=== PATIENT | male | born 1935 | race Caucasian/White ===

== ENCOUNTER → 2020-08-29 | Outpatient (CLI) | payer OTHER ==
[~2020-08-29] MED LIST: ALBUTEROL2.5 MG/3 M INH; CEFUROXIME500 MG PO; CLOPIDOGREL75 MG PO; DIGOXIN125 MCG PO; DOXYCYCLINE HY100 MG PO; ECOTRIN81 MG PO; ELIQUIS 2.5 MG2.5 MG PO; FLONASE 0.05% N16 GM; FUROSEMIDE40 MG PO; GLYNASE 3 MG TAB3 MG PO; K-DUR TAB 20 M20 MEQ PO; LASIX 40 MG TAB40 MG PO; LEVAQUIN750 MG PO; LOPRESSOR 25 MG25 MG PO; LOPRESSOR 50 MG50 MG PO; LOSARTAN-HCTZ1 EAC1 PO; MEDROL DOSEPAK 24 MG PO; METFORMIN HCL500 M2 PO; MOBIC7.5 MG PO; NEURONTIN 300300 MG PO; PREDNISONE 10 M10 MG PO; PREDNISONE10 MG PO; PREDNISONE20 MG PO; PROSCAR5 MG PO; PROVENTIL HFA 61 INH INH; SYNTHROID75 MCG PO; TYLENOL 325MG325 MG PO; XARELTO20 MG PO
== END ==
LOC: RT 09:49
DX: Z01.810 Encounter for preprocedural cardiovascular examination (principal); I49.3 Ventricular premature depolarization; R00.1 Bradycardia, unspecified; R94.31 Abnormal electrocardiogram [ECG] [EKG]
CPT/HCPCS: 93005

== ENCOUNTER → 2021-02-21 | Outpatient (CLI) | payer OTHER | LOC: KOH-I 14:35 | DX: J44.9 Chronic obstructive pulmonary disease, unspecified (principal); R06.02 Shortness of breath | CPT/HCPCS: 71046 ==

== ENCOUNTER 2021-04-03 11:28 | Inpatient (IN) | payer OTHER ==
[~2021-04-03] VITALS: Ht 177.8 cm; Wt 72.1 kg
[~2021-04-03 11:28] MED LIST changes: -ALBUTEROL2.5 MG/3 M INH; -LASIX 40 MG TAB40 MG PO
[2021-04-03 12:17] LABS: HEMOGLOBIN 13.2 gm/dl (14.0-17.5); RED BLOOD COUNT 4.25 M/UL (4.20-5.50); WHITE BLOOD COUNT 9.9 K/UL (4.5-11.0)
[2021-04-03 12:43] LABS: BUN/CREATININE RATIO 15 (0-10)
[2021-04-03] MEDS ORDERED: ALBUTEROL2.5 MG/3 M INH (13:28)
[2021-04-03] MEDS ORDERED: LOPRESSOR50 MG PO (14:37)
[2021-04-03] MEDS ORDERED: PLAVIX 75 MG TA75 MG PO (15:09)
[2021-04-03] MEDS ORDERED: DIGOXIN125 MCG PO (15:10)
[2021-04-03] MEDS ORDERED: LASIX 40 MG TAB40 MG PO (18:48)
[2021-04-03] MEDS ORDERED: K-DUR TAB 20 M20 MEQ PO (18:49)
[2021-04-04 02:27] LABS: HEMOGLOBIN 12.4 gm/dl (14.0-17.5); RED BLOOD COUNT 3.99 M/UL (4.20-5.50)
[2021-04-04 02:48] LABS: BUN/CREATININE RATIO 14 (0-10)
--- NOTE | 2021-04-05 17:09 | NUR ---
PT RECEIVED FROM ER ON BIPAP. PT IN NO DISTRESS. BIPAP REMOVED PT EATING DINNER. PT VITALS IN NORMAL RANGE. NO DISTRESS NOTED WILL CONTINUE TO MOINTOR.
[2021-04-06 02:51] LABS: HEMOGLOBIN 12.6 gm/dl (14.0-17.5); RED BLOOD COUNT 4.09 M/UL (4.20-5.50); WHITE BLOOD COUNT 8.2 K/UL (4.5-11.0)
[2021-04-08] MEDS ORDERED: BROVANA15 MCG/2 M NEB (14:53)
[2021-04-08] MEDS ORDERED: PULMICORT FLEX90 MCG INH (14:53)
[2021-04-08] MEDS ORDERED: CEFDINIR300 MG PO (14:57)
[2021-04-08] MEDS ORDERED: AZITHROMYCIN250 MG PO (14:57)
== END 2021-04-08 18:22 | disposition home or self-care (01) | DRG 698 ==
LOC: ER1 11:28 → CDU 14:04 → PROG CARE 04-05 17:02 → M/S 04-07 16:34
PROVIDERS: Internal Medicine; Physician Assistant; ADMIT Internal Medicine
DX: T83.518A Infection and inflammatory reaction due to other urinary catheter, initial encounter (principal); I50.33 Acute on chronic diastolic (congestive) heart failure; J96.21 Acute and chronic respiratory failure with hypoxia; J18.9 Pneumonia, unspecified organism; J96.22 Acute and chronic respiratory failure with hypercapnia; J44.1 Chronic obstructive pulmonary disease with (acute) exacerbation; I13.0 Hypertensive heart and chronic kidney disease with heart failure and stage 1 through stage 4 chronic kidney disease, or unspecified chronic kidney disease; N17.9 Acute kidney failure, unspecified; E87.2 Acidosis; I48.20 Chronic atrial fibrillation, unspecified; I42.9 Cardiomyopathy, unspecified; I48.0 Paroxysmal atrial fibrillation; I27.20 Pulmonary hypertension, unspecified; N18.30 Chronic kidney disease, stage 3 unspecified; Z20.822 Contact with and (suspected) exposure to COVID-19; I34.0 Nonrheumatic mitral (valve) insufficiency; Y83.9 Surgical procedure, unspecified as the cause of abnormal reaction of the patient, or of later complication, without mention of misadventure at the time of the procedure; N40.0 Benign prostatic hyperplasia without lower urinary tract symptoms; Z66 Do not resuscitate; G20 Parkinson's disease; E11.649 Type 2 diabetes mellitus with hypoglycemia without coma; E03.9 Hypothyroidism, unspecified; Z83.6 Family history of other diseases of the respiratory system; Z98.890 Other specified postprocedural states; Z79.01 Long term (current) use of anticoagulants; Z87.891 Personal history of nicotine dependence
CPT/HCPCS: ECHO; 36415; 36600; 71045; 71046; 80048; 80053; 80202; 81001; 82550; 82553; 82803; 82962; 83735; 83874; 83880; 84484; 85025; 85027; 87077; 87081; 87086; 87186; 93005; 93306; 94640; 94660; 94664; 94667; 94668; 94760; 96374; 96375; 99285; G0378; J1335; J1940; J2920; J3370; J7070; U0002

== ENCOUNTER 2021-06-02 22:06 | Inpatient (IN) | payer OTHER ==
[~2021-06-02] VITALS: Ht 177.8 cm; Wt 68.5 kg
[~2021-06-02 22:06] MED LIST changes: +ALBUTEROL2.5 MG/3 M INH; +AZITHROMYCIN250 MG PO; +BROVANA15 MCG/2 M NEB; +CEFDINIR300 MG PO; +LASIX 40 MG TAB40 MG PO; +LOPRESSOR50 MG PO; -NEURONTIN 300300 MG PO; +PLAVIX 75 MG TA75 MG PO; -PROSCAR5 MG PO; +PULMICORT FLEX90 MCG INH
[2021-06-02 22:50] LABS: HEMOGLOBIN 12.9 gm/dl (14.0-17.5); RED BLOOD COUNT 4.25 M/UL (4.20-5.50); WHITE BLOOD COUNT 10.3 K/UL (4.5-11.0)
[2021-06-02 23:28] LABS: BUN/CREATININE RATIO 18 (0-10)
[2021-06-03] MEDS ORDERED: OMNICEF 300 MG300 MG PO (04:37)
[2021-06-03] MEDS ORDERED: PREDNISONE20 MG PO (04:37)
[2021-06-03] MEDS ORDERED: ZITHROMAX250 MG PO (04:37)
[2021-06-03] MEDS ORDERED: ASPIRIN EC81 MG PO (12:47)
[2021-06-03] MEDS ORDERED: NEURONTIN600 MG PO (13:24)
[2021-06-03] MEDS ORDERED: PROSCAR5 MG PO (18:21)
[2021-06-04 04:27] LABS: HEMOGLOBIN 11.4 gm/dl (14.0-17.5)
[2021-06-04 04:40] LABS: RED BLOOD COUNT 3.75 M/UL (4.20-5.50); WHITE BLOOD COUNT 6.9 K/UL (4.5-11.0)
[2021-06-05 03:38] LABS: HEMOGLOBIN 11.5 gm/dl (14.0-17.5); RED BLOOD COUNT 3.89 M/UL (4.20-5.50)
[2021-06-05 03:40] LABS: WHITE BLOOD COUNT 9.1 K/UL (4.5-11.0)
[2021-06-06 04:08] LABS: HEMOGLOBIN 11.2 gm/dl (14.0-17.5); RED BLOOD COUNT 3.78 M/UL (4.20-5.50); WHITE BLOOD COUNT 8.8 K/UL (4.5-11.0)
[2021-06-06 04:24] LABS: BUN/CREATININE RATIO 27 (0-10)
[2021-06-06] MEDS ORDERED: PREDINSONE (08:31)
[2021-06-06] MEDS ORDERED: ANORO (08:31)
== END 2021-06-06 12:55 | disposition home health service (06) | DRG 189 ==
LOC: ER1 22:06 → CDU 06-03 07:14 → PROG CARE 06-03 07:14
PROVIDERS: Family Medicine; Internal Medicine; Internal Medicine Pulmonary Disease; ADMIT Internal Medicine
DX: J96.21 Acute and chronic respiratory failure with hypoxia (principal); J44.1 Chronic obstructive pulmonary disease with (acute) exacerbation; Z20.822 Contact with and (suspected) exposure to COVID-19; Z66 Do not resuscitate; I13.0 Hypertensive heart and chronic kidney disease with heart failure and stage 1 through stage 4 chronic kidney disease, or unspecified chronic kidney disease; E44.0 Moderate protein-calorie malnutrition; I50.42 Chronic combined systolic (congestive) and diastolic (congestive) heart failure; E11.22 Type 2 diabetes mellitus with diabetic chronic kidney disease; F17.210 Nicotine dependence, cigarettes, uncomplicated; J96.22 Acute and chronic respiratory failure with hypercapnia; N18.30 Chronic kidney disease, stage 3 unspecified; G20 Parkinson's disease; E03.9 Hypothyroidism, unspecified; K44.9 Diaphragmatic hernia without obstruction or gangrene; N40.0 Benign prostatic hyperplasia without lower urinary tract symptoms; R13.10 Dysphagia, unspecified; I48.91 Unspecified atrial fibrillation; K22.5 Diverticulum of esophagus, acquired; Z79.01 Long term (current) use of anticoagulants; Z79.82 Long term (current) use of aspirin; Z99.81 Dependence on supplemental oxygen
CPT/HCPCS: 36415; 36600; 71045; 71250; 74220; 74230; 80048; 80053; 82550; 82553; 82803; 83605; 83735; 83874; 83880; 84100; 84484; 85025; 85027; 86140; 87040; 92526; 92610; 92611-GN; 93005; 94640; 94660; 94664; 94667; 94668; 94760; 96374; 96375; 97162; 97166; 97530; 97535; 99285; J0456; J0696; J1120; J1940; J2920; J2930; J7030; U0002

== ENCOUNTER 2021-06-23 15:03 | Inpatient (IN) | payer OTHER ==
[~2021-06-23] VITALS: Ht 167.6 cm; Wt 64.0 kg
[~2021-06-23 15:03] MED LIST changes: +ANORO; +ASPIRIN EC81 MG PO; +NEURONTIN600 MG PO; +OMNICEF 300 MG300 MG PO; +PREDINSONE; +PROSCAR5 MG PO; +ZITHROMAX250 MG PO
[2021-06-23 15:56] LABS: HEMOGLOBIN 13.1 gm/dl (14.0-17.5); RED BLOOD COUNT 4.38 M/UL (4.20-5.50); WHITE BLOOD COUNT 14.6 K/UL (4.5-11.0)
[2021-06-23 17:02] LABS: BUN/CREATININE RATIO 25 (0-10)
[2021-06-23] MEDS ORDERED: ALBUTEROL1.25 MG/3 INH (21:09)
[2021-06-24 02:44] LABS: HEMOGLOBIN 11.6 gm/dl (14.0-17.5)
[2021-06-24 02:46] LABS: RED BLOOD COUNT 3.88 M/UL (4.20-5.50); WHITE BLOOD COUNT 7.9 K/UL (4.5-11.0)
[2021-06-24 02:59] LABS: BUN/CREATININE RATIO 26 (0-10)
[2021-06-26 03:31] LABS: BUN/CREATININE RATIO 33 (0-10)
[2021-06-26 03:37] LABS: RED BLOOD COUNT 3.75 M/UL (4.20-5.50); WHITE BLOOD COUNT 6.1 K/UL (4.5-11.0)
[2021-06-26] MEDS ORDERED: LEVOFLOXACIN500 MG PO (10:55)
[2021-06-26] MEDS ORDERED: PREDNISONE10 MG PO (10:55)
[2021-06-26] MEDS ORDERED: NEURONTIN600 MG PO (10:55)
[2021-06-26] MEDS ORDERED: SYMBICORT 160-1 INHA INH (10:55)
[2021-06-29 03:21] LABS: HEMOGLOBIN 11.2 gm/dl (14.0-17.5); RED BLOOD COUNT 3.79 M/UL (4.20-5.50); WHITE BLOOD COUNT 6.2 K/UL (4.5-11.0)
[2021-06-29 04:34] LABS: BUN/CREATININE RATIO 24 (0-10)
[2021-06-30] MEDS ORDERED: LOPRESSOR 25 MG25 MG PO (09:28)
[2021-07-02 03:40] LABS: BUN/CREATININE RATIO 20 (0-10)
[2021-07-02] MEDS ORDERED: MEDROL DOSEPAK 24 MG PO (10:14)
[2021-07-02] MEDS ORDERED: K-TAB ER20 MEQ PO (10:40)
== END 2021-07-02 18:30 | disposition home health service (06) | DRG 189 ==
LOC: ER1 15:03 → PROG CARE 17:53 → CDU 17:53 → PROG CARE 20:42
PROVIDERS: Emergency Medicine; Internal Medicine; ADMIT Internal Medicine
PROC: 5A09457 Assistance with Respiratory Ventilation, 24-96 Consecutive Hours, Continuous Positive Airway Pressure (ICD-10-PCS; principal; 2021-06-23)
DX: J96.21 Acute and chronic respiratory failure with hypoxia (principal); J18.9 Pneumonia, unspecified organism; I50.33 Acute on chronic diastolic (congestive) heart failure; G93.41 Metabolic encephalopathy; I13.0 Hypertensive heart and chronic kidney disease with heart failure and stage 1 through stage 4 chronic kidney disease, or unspecified chronic kidney disease; J44.1 Chronic obstructive pulmonary disease with (acute) exacerbation; J44.0 Chronic obstructive pulmonary disease with (acute) lower respiratory infection; I47.1 Supraventricular tachycardia; I48.20 Chronic atrial fibrillation, unspecified; N17.9 Acute kidney failure, unspecified; I42.9 Cardiomyopathy, unspecified; Z20.822 Contact with and (suspected) exposure to COVID-19; Z66 Do not resuscitate; J96.22 Acute and chronic respiratory failure with hypercapnia; I27.20 Pulmonary hypertension, unspecified; N18.30 Chronic kidney disease, stage 3 unspecified; E87.5 Hyperkalemia; R00.1 Bradycardia, unspecified; E11.22 Type 2 diabetes mellitus with diabetic chronic kidney disease; G20 Parkinson's disease; N40.0 Benign prostatic hyperplasia without lower urinary tract symptoms; E03.9 Hypothyroidism, unspecified; I48.0 Paroxysmal atrial fibrillation; R53.81 Other malaise; Z79.01 Long term (current) use of anticoagulants; Z79.4 Long term (current) use of insulin; Z87.891 Personal history of nicotine dependence; Z83.6 Family history of other diseases of the respiratory system
CPT/HCPCS: 36415; 36600; 71045; 80048; 80053; 80162; 82550; 82553; 82803; 82962; 83605; 83690; 83735; 83874; 83880; 84100; 84132; 84439; 84443; 84484; 85025; 85610; 85730; 87040; 93005; 94640; 94660; 94664; 94760; 96374; 96375; 96376; 97110-GP-CQ; 97116-GP-CQ; 97161; 99285; A6212; J1160; J1650; J1940; J2270; J2543; J2930; J3370; J7030; U0002

== ENCOUNTER → 2021-07-12 | Outpatient (CLI) | payer OTHER ==
[~2021-07-12] MED LIST changes: +ALBUTEROL1.25 MG/3 INH; +K-TAB ER20 MEQ PO; +LEVOFLOXACIN500 MG PO; +SYMBICORT 160-1 INHA INH
== END ==
LOC: HEART 5 14:13
DX: J44.9 Chronic obstructive pulmonary disease, unspecified (principal)
CPT/HCPCS: 94060; 94729

== ENCOUNTER 2021-08-13 12:33 | Inpatient (IN) | payer OTHER ==
[~2021-08-13] VITALS: Ht 177.8 cm; Wt 65.8 kg
[~2021-08-13 12:33] MED LIST changes: -ALBUTEROL1.25 MG/3 INH
[2021-08-13 14:15] LABS: HEMOGLOBIN 11.9 gm/dl (14.0-17.5); RED BLOOD COUNT 4.03 M/UL (4.20-5.50); WHITE BLOOD COUNT 9.1 K/UL (4.5-11.0)
[2021-08-13 14:46] LABS: BUN/CREATININE RATIO 12 (0-10)
[2021-08-14 06:38] LABS: HEMOGLOBIN 10.8 gm/dl (14.0-17.5); RED BLOOD COUNT 3.65 M/UL (4.20-5.50); WHITE BLOOD COUNT 8.3 K/UL (4.5-11.0)
[2021-08-14 07:20] LABS: BUN/CREATININE RATIO 12 (0-10)
[2021-08-14] MEDS ORDERED: GABAPENTIN600 MG PO (09:11)
[2021-08-14] MEDS ORDERED: METOPROLOL TART50 MG PO (09:12)
[2021-08-14] MEDS ORDERED: SPIRIVA RESPIMAT4 GM INH (09:13)
[2021-08-14] MEDS ORDERED: ALBUTEROL2.5 MG/3 M NEB (21:09)
[2021-08-15 06:08] LABS: BUN/CREATININE RATIO 14 (0-10)
[2021-08-15 06:25] LABS: HEMOGLOBIN 11.7 gm/dl (14.0-17.5); RED BLOOD COUNT 3.88 M/UL (4.20-5.50); WHITE BLOOD COUNT 8.1 K/UL (4.5-11.0)
--- NOTE | 2021-08-17 07:19 | NUR ---
APPLE JUICE GIVEN AT THIS TIME FOR HYPOGLYCEMIA.
[2021-08-17 08:01] LABS: BUN/CREATININE RATIO 17 (0-10)
[2021-08-19 06:45] LABS: HEMOGLOBIN 10.5 gm/dl (14.0-17.5); RED BLOOD COUNT 3.56 M/UL (4.20-5.50); WHITE BLOOD COUNT 7.4 K/UL (4.5-11.0)
[2021-08-19 07:00] LABS: BUN/CREATININE RATIO 13 (0-10)
[2021-08-19] MEDS ORDERED: METOPROLOL TART50 MG PO (12:23)
[2021-08-19] MEDS ORDERED: AUGMENTIN 875-1 EACH PO (12:57)
== END 2021-08-19 14:55 | disposition home health service (06) | DRG 193 ==
LOC: ER1 12:33 → CDU 16:13 → MED SURG 4 16:13
PROVIDERS: Internal Medicine; Nurse Practitioner; Physician Assistant; ADMIT Internal Medicine
DX: J18.9 Pneumonia, unspecified organism (principal); J96.21 Acute and chronic respiratory failure with hypoxia; J96.22 Acute and chronic respiratory failure with hypercapnia; J44.0 Chronic obstructive pulmonary disease with (acute) lower respiratory infection; I13.0 Hypertensive heart and chronic kidney disease with heart failure and stage 1 through stage 4 chronic kidney disease, or unspecified chronic kidney disease; I50.32 Chronic diastolic (congestive) heart failure; Y95 Nosocomial condition; Z20.822 Contact with and (suspected) exposure to COVID-19; N18.30 Chronic kidney disease, stage 3 unspecified; E11.22 Type 2 diabetes mellitus with diabetic chronic kidney disease; I27.20 Pulmonary hypertension, unspecified; G20 Parkinson's disease; L89.321 Pressure ulcer of left buttock, stage 1; L89.311 Pressure ulcer of right buttock, stage 1; L89.811 Pressure ulcer of head, stage 1; L89.151 Pressure ulcer of sacral region, stage 1; E03.9 Hypothyroidism, unspecified; I48.0 Paroxysmal atrial fibrillation; F17.200 Nicotine dependence, unspecified, uncomplicated; N40.0 Benign prostatic hyperplasia without lower urinary tract symptoms; Z66 Do not resuscitate; Z99.81 Dependence on supplemental oxygen; Z83.6 Family history of other diseases of the respiratory system; Z79.01 Long term (current) use of anticoagulants; Z93.6 Other artificial openings of urinary tract status
CPT/HCPCS: 36415; 36600; 71045; 80048; 80053; 82550; 82553; 82803; 82962; 83036; 83605; 83735; 83874; 83880; 84484; 85025; 87040; 93005; 94640; 94664; 94760; 96374; 96375; 97116-GP-CQ; 97161; 99285; J0456; J0692; J0696; J1100; U0002

== ENCOUNTER 2021-09-26 08:09 | Inpatient (IN) | payer OTHER ==
[~2021-09-26] VITALS: Ht 177.8 cm; Wt 68.0 kg
[~2021-09-26 08:09] MED LIST changes: +ALBUTEROL2.5 MG/3 M NEB; +AUGMENTIN 875-1 EACH PO; +GABAPENTIN600 MG PO; +METOPROLOL TART50 MG PO; +SPIRIVA RESPIMAT4 GM INH
[2021-09-26 08:47] LABS: HEMOGLOBIN 11.5 gm/dl (14.0-17.5); RED BLOOD COUNT 3.9 M/UL (4.20-5.50); WHITE BLOOD COUNT 9.1 K/UL (4.5-11.0)
[2021-09-26 09:22] LABS: BUN/CREATININE RATIO 20 (0-10)
[2021-09-26] MEDS ORDERED: BREZTRI AEROS10.7 GM INH (17:10)
[2021-09-27 03:18] LABS: RED BLOOD COUNT 2.59 M/UL (4.20-5.50)
[2021-09-27 03:34] LABS: BUN/CREATININE RATIO 21 (0-10)
[2021-09-28 04:12] LABS: WHITE BLOOD COUNT 8.8 K/UL (4.5-11.0)
[2021-09-28 04:14] LABS: HEMOGLOBIN 10.2 gm/dl (14.0-17.5); RED BLOOD COUNT 3.43 M/UL (4.20-5.50)
[2021-09-28 04:49] LABS: BUN/CREATININE RATIO 16 (0-10)
[2021-09-29 03:56] LABS: BUN/CREATININE RATIO 13 (0-10)
[2021-09-30 03:13] LABS: RED BLOOD COUNT 3.36 M/UL (4.20-5.50)
[2021-09-30 03:24] LABS: BUN/CREATININE RATIO 9 (0-10)
--- NOTE | 2021-09-30 20:46 | NUR ---
spoke with patients family members, who are present in the room at this time, that he is declining and explained vital signs. they are aware that his oxygen is in the 70s and his heart rate is in the 140s-150s. family aware of decline.
--- NOTE | 2021-10-01 04:08 | NUR ---
PATIENTS TIME OF WAS 333. 2ND NURSE VERIFIED TIME OF . ALL LOBES ASCULTATED. PULSES ASSESSED, NONE NOTED. FAMILY AWARE AND SACHA CONTACTED. MD ALSO AWARE. ALL LINES REMOVED AND PREFORMED POST MORTEM CARE.
== END 2021-10-01 03:34 | disposition expired | DRG 637 ==
LOC: ER1 08:09 → CDU 09:49 → PROG CARE 19:00
PROVIDERS: Physician Assistant; Student in an Organized Health Care Education/Training Program; ADMIT Internal Medicine
PROC: B24BZZZ Ultrasonography of Heart with Aorta (ICD-10-PCS; principal; 2021-09-26)
PROC: 5A09457 Assistance with Respiratory Ventilation, 24-96 Consecutive Hours, Continuous Positive Airway Pressure (ICD-10-PCS; 2021-09-26)
DX: E11.649 Type 2 diabetes mellitus with hypoglycemia without coma (principal); J96.22 Acute and chronic respiratory failure with hypercapnia; G93.41 Metabolic encephalopathy; Z66 Do not resuscitate; Z20.822 Contact with and (suspected) exposure to COVID-19; J96.21 Acute and chronic respiratory failure with hypoxia; I50.32 Chronic diastolic (congestive) heart failure; I13.0 Hypertensive heart and chronic kidney disease with heart failure and stage 1 through stage 4 chronic kidney disease, or unspecified chronic kidney disease; J44.1 Chronic obstructive pulmonary disease with (acute) exacerbation; E11.42 Type 2 diabetes mellitus with diabetic polyneuropathy; G25.0 Essential tremor; I27.20 Pulmonary hypertension, unspecified; R26.81 Unsteadiness on feet; F02.80 Dementia in other diseases classified elsewhere, unspecified severity, without behavioral disturbance, psychotic disturbance, mood disturbance, and anxiety; E03.9 Hypothyroidism, unspecified; N40.0 Benign prostatic hyperplasia without lower urinary tract symptoms; R31.9 Hematuria, unspecified; N99.89 Other postprocedural complications and disorders of genitourinary system; I08.1 Rheumatic disorders of both mitral and tricuspid valves; I49.1 Atrial premature depolarization; J44.9 Chronic obstructive pulmonary disease, unspecified; N18.30 Chronic kidney disease, stage 3 unspecified; E11.22 Type 2 diabetes mellitus with diabetic chronic kidney disease; G20 Parkinson's disease; Z51.5 Encounter for palliative care; Z99.81 Dependence on supplemental oxygen; Z79.01 Long term (current) use of anticoagulants; Z98.890 Other specified postprocedural states; Z87.891 Personal history of nicotine dependence; Z83.6 Family history of other diseases of the respiratory system
CPT/HCPCS: ECHO; 36415; 36600; 70450; 70551; 71045; 80048; 80053; 80162; 81001; 82140; 82550; 82553; 82803; 82962; 83605; 83735; 83880; 84439; 84443; 84484; 85025; 87040; 93005; 93306; 94640; 94660; 94664; 94760; 96374; 96375; 97110; 97110-GP-CQ; 97162; 97166; 97530-GP-CQ; 99285; A6212; C9113; J0461; J1630; J2060; J2270; J3486; U0002